=== PATIENT | female | born 1970 | race Caucasian/White ===

== ENCOUNTER 2018-01-29 10:52 | Emergency (ER) | payer SELFPAY ==
[~2018-01-29] VITALS: Ht 147.3 cm; Wt 56.7 kg
[~2018-01-29 10:52] MED LIST: DEPAKOTE125 MG; RISPERDAL1 MG PO
[2018-01-29] MEDS ORDERED: MORPHINE SULFATE 4 MG/ML SYR IV STA (11:03)
[2018-01-29] MEDS ORDERED: SODIUM CHLORIDE 0.9% 1000ML 1,000 ML IV STA (11:03)
[2018-01-29] MEDS ORDERED: ONDANSETRON HCL INJ 2 MG/ML VIAL IV SCH (11:15)
[2018-01-29] MEDS ORDERED: CEFTRIAXONE SOD 1 GM VIAL IV SCH (11:15)
[2018-01-29 11:33] LABS: BILIRUBIN,URINE NEGATIVE (NEGATIVE); KETONES,URINE NEGATIVE (NEGATIVE); LEUKOCYTE ESTERASE ,URINE NEGATIVE (NEGATIVE); NITRITE,URINE NEGATIVE (NEGATIVE); PROTEIN,URINE DIPSTICK NEGATIVE (NEGATIVE); URINE UROBILINOGEN 1 mg/dL (0.2 - 1)
[2018-01-29 11:34] LABS: CLARITY,URINE HAZY (CLEAR); COLOR,URINE YELLOW (YELLOW)
[2018-01-29 11:38] LABS: BACTERIA,URINE FEW /HPF; EPITHELIAL CELLS,URINE FEW /LPF
--- NOTE | 2018-01-29 11:38 | Diagnostic Imaging Report ---
EXAMINATION: CHEST SINGLE (PORTABLE) INDICATION: Headache. Ear and throat pain. COMPARISON: None FINDINGS: AP view TUBES and LINES: None. LUNGS: Lungs are well inflated. Lungs are clear. There is no evidence of pneumonia or pulmonary edema. PLEURA: No pleural effusion or pneumothorax. HEART AND MEDIASTINUM: The cardiomediastinal silhouette is unremarkable. BONES AND SOFT TISSUES: No acute osseous lesion. Soft tissues are unremarkable. UPPER ABDOMEN: No free air under the diaphragm. IMPRESSION: No acute thoracic abnormality. Signed by: Dr. Garland Oliver M.D. on 01/29/2018 11:34 AM
--- NOTE | 2018-01-29 11:41 | Diagnostic Imaging Report ---
Exam: Head CT without contrast History: Headache Comparison studies: None Technique: Axial images were obtained from the skull base to the vertex. Coronal and sagittal images reconstructed from the axial data. Intravenous contrast: None Findings: Scalp: No abnormalities. Bones: No fractures, blastic or lytic lesions. Brain sulci: Appropriate for age. Ventricles: Normal in size and configuration. No hydrocephalus. Extra-axial spaces: No masses, no fluid collection. Parenchyma: No abnormal densities. No masses, hemorrhage, acute or chronic vascular insults. Sellar/suprasellar region: Possible subtle outpouching at the left ICA communicating segment regional to the origin of the left posterior commuting artery may represent small aneurysm or infundibulum. Craniocervical junction: Patent foramen magnum. No Chiari one malformation. Incidental findings: Subtle calcified atherosclerosis in the left para ophthalmic ICA segment. Surgical changes of right mastoidectomy with nonspecific right middle ear and mastoid opacification. IMPRESSION: 1. No acute intracranial abnormalities. 2. Specifically, no acute hemorrhage. 3. Possible small aneurysm or infundibulum at the origin of the left posterior communicating artery. Recommend intracranial MRA or CTA to further evaluate. 4. Right mastoidectomy changes with nonspecific right middle ear mastoid opacification. Signed by: Dr. Luis Wood M.D. on 01/29/2018 11:37 AM
[2018-01-29 12:29] LABS: BASOPHILS # (AUTO) 0.1 (0.0-0.1); BASOPHILS % 0.5 % (0.0-1.0); EOSINOPHILS # (AUTO) 0.3 (0.0-0.4); EOSINOPHILS % 2.4 % (0.0-6.0); HEMATOCRIT 43.3 % (34.2-44.1); HEMOGLOBIN 14.8 g/dL (12.0-16.0); LYMPHOCYTES # (AUTO) 3.3 (1.0-3.2); LYMPHOCYTES % 27.1 % (18.0-39.1); MEAN CORPUSCULAR HEMOGLOBIN 31.1 pg (28-32); MEAN CORPUSCULAR HGB CONC 34.2 g/dL (31-35); MONOCYTES # (AUTO) 0.7 (0.2-0.8); MONOCYTES % 5.5 % (4.4-11.3); NEUTROPHILS # (AUTO) 7.8 (2.1-6.9); NEUTROPHILS % 64.2 % (38.7-80.0); PLATELET COUNT 441 x10e3/uL (140-360); RED BLOOD COUNT 4.76 x10e6/uL (3.6-5.1)
[2018-01-29] MEDS ORDERED: MORPHINE SULFATE 2 MG/ML SYR ONE (12:53)
[2018-01-29 12:54] LABS: ALANINE AMINOTRANSFERASE 42 IU/L (0-55); ALBUMIN 3.9 g/dL (3.5-5.0); ALBUMIN/GLOBULIN RATIO 0.9 (0.8-2.0); ALKALINE PHOSPHATASE 95 IU/L (40-150); ANION GAP 11.8 mmol/L (8-16); BLOOD UREA NITROGEN 12 mg/dL (7-26); BUN/CREATININE RATIO 16 (6-25); CALCIUM 10.2 mg/dL (8.4-10.2); CARBON DIOXIDE 26 mmol/L (22-29); CHLORIDE 100 mmol/L (98-107); CREATININE, SERUM 0.77 mg/dL (0.57-1.11); EST GLOMERULAR FILTRATION RATE > 60 ML/MIN (60-); GLUCOSE 94 mg/dL (74-118); POTASSIUM 3.8 mmol/L (3.5-5.1); SODIUM 134 mmol/L (136-145)
[2018-01-29 13:10] VITALS: BP 129/87
== END 2018-01-29 13:58 | disposition short-term general hospital (02) ==
LOC: ER 10:52
DX: G44.89 Other headache syndrome (principal); H92.01 Otalgia, right ear; H70.001 Acute mastoiditis without complications, right ear; L03.211 Cellulitis of face; F43.10 Post-traumatic stress disorder, unspecified
CPT/HCPCS: 36415; 70450; 71045; 80053; 81001; 83605; 85025; 87040; 87071; 87205; 99284; J0696; J2270; J2405; J7030

== ENCOUNTER → 2024-10-02 | Outpatient (REF) | payer MEDICARE, OTHER ==
[~2024-10-02] MED LIST changes: +IOPAMIDOL 370 MG/ML 100 ML INFUS..BTL INJ ONE
[2024-10-02 14:43] LABS: CREATININE, SERUM 0.84 mg/dL (0.57-1.11)
== END ==
LOC: CT 13:30
PROVIDERS: ATTEND Nurse Practitioner Family
DX: R10.9 Unspecified abdominal pain (principal)
CPT/HCPCS: 36415; 74177; 82565; 84520; Q9967

== ENCOUNTER → 2024-11-16 | Outpatient (REF) | payer MEDICARE ==
[~2024-11-16] MED LIST changes: -IOPAMIDOL 370 MG/ML 100 ML INFUS..BTL INJ ONE
== END ==
LOC: DX 08:04
PROVIDERS: ATTEND Internal Medicine Gastroenterology
DX: R13.10 Dysphagia, unspecified (principal)
CPT/HCPCS: 74220

== ENCOUNTER → 2025-02-23 | Outpatient (REF) | payer MEDICARE ==
[2025-02-23 13:57] LABS: CREATININE, SERUM 0.81 mg/dL (0.57-1.11)
== END ==
LOC: CT 12:57
PROVIDERS: ATTEND Internal Medicine
DX: D35.02 Benign neoplasm of left adrenal gland (principal); E11.9 Type 2 diabetes mellitus without complications
CPT/HCPCS: 36415; 74150; 82565; 84520